=== PATIENT | female | born 1975 | race Caucasian/White ===

== ENCOUNTER 2021-02-09 10:40 | Emergency (ER) | payer OTHER, MEDICAID ==
[~2021-02-09] VITALS: Ht 162.6 cm; Wt 86.2 kg
[2021-02-09 10:40] VITALS: BP_SYST 117
--- NOTE | 2021-02-09 10:40 | NUR ---
BROUGHT IN BY [facility], PLACED IN BED #1 AND TRIAGED. REPORT GIVEN TO WADE
--- NOTE | 2021-02-09 11:19 | NUR ---
OFF TO RADIOLOGY, PT CALM, ALERT, NO DISTRESS
--- NOTE | 2021-02-09 11:28 | NUR ---
FAMILY AT BEDSIDE, NO DISTRESS, RESP UNLABORED
[2021-02-09] MEDS ORDERED: SOM350 PO (11:52)
[2021-02-09] MEDS ORDERED: IBUP-1969 PO (11:52)
[2021-02-09 11:55] VITALS: BP_SYST 117
--- NOTE | 2021-02-09 11:56 | NUR ---
Patient given written and verbal discharge instructions and verbalizes understanding. ER MD discussed with patient the results and treatment provided. Patient in stable condition. ID arm band removed. Rx of NORCO/IBU given. Patient educated on pain management and to follow up with PMD. Pain Scale . Opportunity for questions provided and answered. Medication side effect fact sheet provided.
== END 2021-02-09 11:56 | disposition home or self-care (01) ==
LOC: SED 10:40
DX: S13.4XXA Sprain of ligaments of cervical spine, initial encounter (principal); S23.3XXA Sprain of ligaments of thoracic spine, initial encounter; V49.49XA Driver injured in collision with other motor vehicles in traffic accident, initial encounter; Y93.89 Activity, other specified; Y92.89 Other specified places as the place of occurrence of the external cause; Y99.8 Other external cause status
CPT/HCPCS: 71045; 72040-TC; 81025; 99284